=== PATIENT | female | born 1980 | race Two or more races ===

== ENCOUNTER 2025-02-05 19:02 | Emergency (ER) | payer OTHER ==
[~2025-02-05] VITALS: Ht 162.6 cm; Wt 66.1 kg
--- NOTE | 2025-02-05 19:35 | ED.PDOC ---
Back pain HPI HPI Comments 44 y.o female with PMHx of DJD, presents to the ED for chronic body pain that includes her hips, head and chest. Patient reports ongoing pain but for the past 2-3 days, pain has worsened. Patient lives in [place], is currently with family in the [facility] and will not go back for another week, but does states running out of her pain medication. Patient is on Gabapentin 300mg TID, Flexeril 5mg BID, and meloxicam 10mg. Patient denies any recent falls, injuries, nausea, vomiting, SOB, fever, chills or leg swelling. Time Seen by MD: 11:25 Reviewed Notes: Nurses Notes, Medications, Allergies Allergies: Coded Allergies: NO KNOWN ALLERGIES (Unverified , 02/05/25) Information Source: Patient Mode of Arrival: Ambulatory Timing: Came on: Gradually Duration: Since onset Severity: Moderate Quality: Aching, Sharp Onset: Other Circumstance: Other History of: Other Modifying Factors: Nothing Past Medical History PAST MEDICAL HISTORY: Denies Past Medical History (Other): DJD Surgical History: Denies all surgeries APPLIANCE SERVICER History: No Pertinent APPLIANCE SERVICER History Family History Family History: Reviewed,noncontributory to illness Social History Smoker: Non-Smoker Alcohol: Denies ETOH Use Drugs: Denies Drug Use Lives In: Home Constitutional: denies: chills, diaphoresis, fatigue, fever, malaise, sweats, weakness, others EENTM: denies: blurred vision, double vision, ear bleeding, ear discharge, ear drainage, ear pain, ear ringing, eye pain, eye redness, hearing loss, mouth pain, mouth swelling, nasal discharge, nose bleeding, nose congestion, nose pa in, photophobia, tearing, throat pain, throat swelling, voice changes, others Respiratory: denies: cough, hemoptysis, orthopnea, SOB at rest, shortness of breath, SOB with excertion, stridor, wheezing, others Cardiovascular: reports: chest pain; denies: dizzy spells, diaphoresis, Dyspnea on exertion, edema, irregular heart beat, left arm pain, lightheadedness, palpitations, PND, syncope, others Gastrointestinal: denies: abdomen distended, abdominal pain, blood streaked bowels, constipated, diarrhea, dysphagia, difficulty swallowing, hematemesis, m cathryn, nausea, poor appetite, poor fluid intake, rectal bleeding, rectal pain, vomiting, others Genitourinary: denies: abnormal vagina bleeding, burning, dyspareunia, dysuria, flank pain, frequency, hematuria, incontinence, pain, , vagina discharge, urgency, others Neurological: reports: headache; denies: dizziness, fainting, left sided numbness, left sided weakness, numbness, paresthesia, pre-existing deficit, right sided numbness, right sided weakness, seizure, speech problems, tingling, tremors, weakness, others Musculoskeletal: reports: muscle pain, others (hip pain ); denies: back pain, gout, joint pain, joint swelling, muscle stiffness, neck pain Integumetry: denies: bruises, change in color, change in hair/nails, dryness, laceration, lesions, lumps, rash, wounds, others Allergic/Immunocompromised: denies: Difficulty Healing, Frequent Infections, Hives, Itching, others Hematologic/Lymphatic: denies: anemia, blood clots, easy bleeding, easy bruising, swollen glands, others Endocrine: denies: excessive hunger, excessive sweating, excessive thirst, excessive urination, flushing, intolerance to cold, intolerance to heat, unexplained weight gain, unexplained weight loss, others Psychiatric: denies: anxiety, bipolar disorder, depression, hopeless, panic disorder, schizophrenia, sleepless, suicidal, others All Other Systems: Reviewed and Negative Physical Exam General Appearance: No Apparent Distress, Normal HEENT: Normal ENT Inspection, Pharynx Normal, TMs Normal Neck: Full Range of Motion, Non-Tender, Normal, Normal Inspection Respiratory: Chest Non-Tender, Lungs Clear, No Accessory Muscle Use, No Respiratory Distress, Normal Breath Sounds Cardiovascular: No Edema, No JVD, No Murmur, No Gallop, Normal Peripheral Pulses, Regular Rate/Rhythm Breast Exam: Deferred Gastrointestinal: No Organomegaly, Non Tender, No Pulsatile Mass, Normal Bowel Sounds, Soft Genitalia: Deferred Pelvic: Deferred Rectal: Deferred Extremities: No calf tenderness, Normal capillary refill, Normal inspection, Normal range of motion, Non-tender, No pedal edema Musculoskeletal : Apperance: Normal Neurologic: Alert, shot peening operator II-XII nml as Tested, No Motor Deficits, Normal Affect, Normal Mood, No Sensory Deficits Cerebellar Function: Normal Reflexes: Normal Skin: Dry, Normal Color, Warm Lymphatic: No Adenopathy Was a procedure done? Was a procedure done?: No Back Pain Differential Dx Differential Diagnosis: DJD, Musculoskeletal Pain, Pyelonephritis, Strain X-Ray, Labs, Meds, VS Vital Signs Date Time Temp Pulse Resp B/P (MAP) Pulse Ox O2 Delivery O2 Flow Rate FiO2 02/05/25 19:20 98.5 76 16 116/77 (90) 99 98.5 X-Ray, Labs, Meds, VS Comment Imaging: X-rays and CT scans were reviewed and interpreted by this provider, imaging shows no fractures and no pathological disease. Pending radiology review. Laboratory: Labs reviewed and interpreted by this provider. No significant abnormalities noted. Patient has prior medical visits reviewed. Med reconciliation performed Vital signs reviewed Time of 1ST Reevaluation: 19:31 Reevaluation 1ST: Unchanged Patient Education/Counseling: Diagnosis, Treatment, Prognosis, Need For Follow Up (Follow up with PCP next available appointment.) Family Education/Counseling: No Family Present SEPSIS Sepsis Screen Vital Signs Date Time Temp Pulse Resp B/P (MAP) Pulse Ox O2 Delivery O2 Flow Rate FiO2 02/05/25 19:20 98.5 76 16 116/77 (90) 99 98.5 Departure 1 Departure Time of Disposition: 20:09 Impression: Primary Impression: Medication refill Disposition: 01 HOME / SELF CARE / HOMELESS Condition: Fair e-Prescriptions Naproxen (NAPROSYN TABLET) 500 Mg Tb 1 TAB PO BID, #60 TAB 1 Refill Prov: DANNY HATHAWAYP 02/05/25 Cyclobenzaprine Hcl (Cyclobenzaprine Hcl) 10 Mg Tab 10 MG PO BID for 30 Days, #60 TAB Prov: DANNY HATHAWAY VACUUM SYSTEM TESTER 02/05/25 Methocarbamol (Methocarbamol) 500 Mg Tab 500 MG PO BID PRN, #40 TAB Prov: DANNY HATHAWAYP 02/05/25 Gabapentin (Once-Daily) (Gabapentin) 300 Mg Tab 300 MG PO TID for 30 Days, #90 TAB Prov: DANNY HATHAWAY VACUUM SYSTEM TESTER 02/05/25 Discharged With: Self Critical Care Note Critical Care Time?: No Stability Stability form required: No I personally scribed for DANNY HATHAWAYP ([email or web address]) on 02/05/25 at 19:35. Electronically submitted by Jeimy Vernon ([facility]). DANNY HATHAWAY [facility] Feb 05, 2025 19:35
[2025-02-05] MEDS ORDERED: NAP500T PO (20:12)
[2025-02-05] MEDS ORDERED: METH-1181 PO (20:12)
[2025-02-05] MEDS ORDERED: GABA300T4 PO (20:12)
[2025-02-05] MEDS ORDERED: CYCL-839 PO (20:12)
[2025-02-05] MEDS: methylPREDNISolone SOD SUCC 125 MG/2 ML VL IM ONE (20:15)
[2025-02-05] MEDS: KETOROLAC TROMETH 30 MG/ML 1ML VIAL IM ONE (20:15)
[2025-02-05 22:34] VITALS: BP 95/63; PULSE 54; RESP 17; TEMP 97.8; O2SAT 97
== END 2025-02-05 22:44 | disposition home or self-care (01) ==
LOC: ER 19:02
DX: G89.29 Other chronic pain (principal); M19.90 Unspecified osteoarthritis, unspecified site; Z76.0 Encounter for issue of repeat prescription
CPT/HCPCS: 96372; 99284; J1885; J2919

== ENCOUNTER 2025-06-21 19:58 | Emergency (ER) | payer OTHER, MEDICAID ==
[~2025-06-21] VITALS: Ht 170.2 cm; Wt 68.0 kg
[~2025-06-21 19:58] MED LIST: CYCL-839 PO; GABA300T4 PO; METH-1181 PO; NAP500T PO
--- NOTE | 2025-06-21 20:51 | DVH ---
CLINICAL HISTORY: syncope TECHNIQUE: Single view of the chest was obtained. COMPARISON: None FINDINGS: The heart size and pulmonary vasculature are normal. The lungs are clear. IMPRESSION: NO ACUTE CARDIOPULMONARY PROCESS.
[2025-06-21 20:56] LABS: Hematocrit 36.9 % (36.0-46.0); Hemoglobin 12.3 g/dL (12.2-16.2); Mean Corpuscular Hemoglobin 29.2 pg (28.0-32.0); Mean Corpuscular Volume 87.7 fL (80.0-100.0); Nucleated Red Blood Cells % 0.0 %
[2025-06-21 21:04] LABS: Chloride 105 mmol/L (98-107); Potassium 3.8 mmol/L (3.5-5.1); Sodium 142 mmol/L (136-145)
[2025-06-21 21:05] LABS: Anion Gap 11 (5-15); Calcium 9.4 mg/dL (8.7-10.4); Carbon Dioxide 26 mmol/L (20-31)
[2025-06-21 21:10] LABS: BUN/Creatinine Ratio 13.5 (10.0-20.0); Blood Urea Nitrogen 12 mg/dL (9-23); Glucose 89 mg/dL (74-106)
--- NOTE | 2025-06-21 22:53 | ED.PDOC ---
History of Present Illness HPI Comments 44-year-old female with past medical history of chronic neck pain, degenerative disc disease presenting for evaluation of fainting episode which occurred today, blunt head injury, neck pain. Patient states that she has chronic neck pain, stiffness for which she takes muscle relaxants, gabapentin regularly. She states that she was walking her dog when she started to feel lightheaded and felt as if she was going to pass out. She went back into her home and before she knew which states that she had passed out, fell down onto her butt, hit the back of her head. Did lose consciousness. No new neck pain aside from what she already has a baseline. Denies any preceding chest pain, shortness of breath. Denies any prior history of fainting episodes. Denies any focal weakness on 1 side of the body. Having pain along the back of the head where she struck it. Chief Complaint: Syncope Time Seen by MD: 20:08 Allergies: Coded Allergies: NO KNOWN ALLERGIES (Unverified , 02/05/25) Home Meds Active Scripts Naproxen (NAPROSYN TABLET) 500 Mg Tb, 1 TAB PO BID, #60 TAB 1 Refill Prov:DANNY GARCIA ADOBE ARCHITECT 02/05/25 Cyclobenzaprine Hcl (Cyclobenzaprine Hcl) 10 Mg Tab, 10 MG PO BID for 30 Days, #60 TAB Prov:DANNY GARCIA ADOBE ARCHITECT 02/05/25 Methocarbamol (Methocarbamol) 500 Mg Tab, 500 MG PO BID PRN, #40 TAB Prov:DANNY GARCIA ADOBE ARCHITECT 02/05/25 Gabapentin (Once-Daily) (Gabapentin) 300 Mg Tab, 300 MG PO TID for 30 Days, #90 TAB Prov:DANNY GARCIA ADOBE ARCHITECT 02/05/25 Mode of Arrival: Ambulatory Timing: Hours Past Medical History PAST MEDICAL HISTORY: Denies Surgical History: Denies all surgeries QUALITY CONTROL ASSESSOR History: No Pertinent QUALITY CONTROL ASSESSOR History Family History Family History: Reviewed,noncontributory to illness Social History Smoker: Non-Smoker Alcohol: Denies ETOH Use Drugs: Denies Drug Use Lives In: Home Constitutional: denies: chills, diaphoresis, fatigue, fever, malaise, sweats, weakness, others EENTM: denies: blurred vision, double vision, ear bleeding, ear discharge, ear drainage, ear pain, ear ringing, eye pain, eye redness, hearing loss, mouth pain, mouth swelling, nasal discharge, nose bleeding, nose congestion, nose pain, photophobia, tearing, throat pain, throat swelling, voice changes, others Respiratory: denies: cough, hemoptysis, orthopnea, SOB at rest, shortness of breath, SOB with excertion, stridor, wheezing, others Cardiovascular: reports: syncope; denies: chest pain, dizzy spells, diaphoresis, Dyspnea on exertion, edema, irregular heart beat, left arm pain, lightheadedness, palpitations, PND, others Gastrointestinal: denies: abdomen distended, abdominal pain, blood streaked bowels, constipated, diarrhea, dysphagia, difficulty swallowing, hematemesis, melena, nausea, poor appetite, poor fluid intake, rectal bleeding, rectal pain, vomiting, others Genitourinary: denies: abnormal vagina bleeding, burning, dyspareunia, dysuria, flank pain, frequency, hematuria, incontinence, pain, , vagina di scharge, urgency, others Neurological: reports: headache; denies: dizziness, fainting, left sided numbness, left sided weakness, numbness, paresthesia, pre-existing deficit, right sided numbness, right sided weakness, seizure, speech problems, tingling, tremors, weakness, others Musculoskeletal: denies: back pain, gout, joint pain, joint swelling, muscle pain, muscle stiffness, neck pain, others Integumetry: denies: bruises, change in color, change in hair/nails, dryness, laceration, lesions, lumps, rash, wounds, others Allergic/Immunocompromised: denies: Difficulty Healing, Frequent Infections, Hives, Itching, others Hematologic/Lymphatic: denies: anemia, blood clots, easy bleeding, easy bruising, swollen glands, others Endocrine: denies: excessive hunger, excessive sweating, excessive thirst, excessive urination, flushing, intolerance to cold, intolerance to heat, unexplained weight gain, unexplained weight loss, others Psychiatric: denies: anxiety, bipolar disorder, depression, hopeless, panic disorder, schizophrenia, sleepless, suicidal, others All Other Systems: Reviewed and Negative Physical Exam General Appearance: No Apparent Distress, Normal HEENT: Normal ENT Inspection, Pharynx Normal, TMs Normal, Other (+small left posterior occiput hematoma, no lacerations) Neck: Full Range of Motion, Non-Tender, Normal, Normal Inspection Respiratory: Chest Non-Tender, Lungs Clear, No Accessory Muscle Use, No Respiratory Distress, Normal Breath Sounds Cardiovascular: No Edema, No JVD, No Murmur, No Gallop, Normal Peripheral Pulses, Regular Rate/Rhythm Breast Exam: Deferred Gastrointestinal: No Organomegaly, Non Tender, No Pulsatile Mass, Normal Bowel Sounds, Soft Genitalia: Deferred Pelvic: Deferred Rectal: Deferred Extremities: No calf tenderness, Normal capillary refill, Normal inspection, Normal range of motion, Non-tender, No pedal edema Musculoskeletal : Extremity Location: Other (Bilateral paraspinal cervical muscle tenderness to palpation, no midline C-spine tenderness to palpation, no step-offs) Apperance: Normal Neurologic: Alert, associate II-XII nml as Tested, No Motor Deficits, Normal Affect, Normal Mood, No Sensory Deficits Cerebellar Function: Normal Reflexes: Normal Skin: Dry, Normal Color, Warm Lymphatic: No Adenopathy Was a procedure done? Was a procedure done?: No EKG EKG : Pulse Rate (adult): 68 [place]: Normal Cardiac Rhythm: NSR Block: None Hypertrophy: None ST: Normal Differential Dx Considerations may include: Vasovagal syncope vs pulmonary embolism vs ACS vs symptomatic anemia X-Ray, Labs, Meds, VS Vital Signs Date Time Temp Pulse Resp B/P (MAP) Pulse Ox O2 Delivery O2 Flow Rate FiO2 06/21/25 20:06 98.2 76 18 134/96 96 98.2 Lab Test 06/21/25 22:23 06/21/25 20:41 Range/Units Urine Test Negative Negative White Blood Count 4.7 4.4-10.8 10^3/uL Red Blood Count 4.20 4.0-5.20 10^6/uL Hemoglobin 12.3 12.2-16.2 g/dL Hematocrit 36.9 36.0-46.0 % Mean Corpuscular Volume 87.7 80.0-100.0 fL Mean Corpuscular Hemoglobin 29.2 28.0-32.0 pg Mean Corpuscular Hemoglobin Concent 33.3 32.0-36.0 g/dL Red Cell Distribution Width 13.7 11.8-14.3 % Platelet Count 344 140-450 10^3/uL Mean Platelet Volume 7.5 6.9-10.8 fL Neutrophils (%) (Auto) 44.7 37.0-80.0 % Lymphocytes (%) (Auto) 43.9 10.0-50.0 % Monocytes (%) (Auto) 7.7 0.0-12.0 % Eosinophils (%) (Auto) 2.1 0.0-7.0 % Basophils (%) (Auto) 1.6 0.0-2.0 % Neutrophils # (Auto) 2.1 1.6-8.6 10 ^3/uL Lymphocytes # (Auto) 2.1 0.4-5.4 10 ^3/uL Monocytes # (Auto) 0.4 0-1.3 10 ^3/uL Eosinophils # (Auto) 0.1 0-0.8 10 ^3/uL Basophils # (Auto) 0.1 0-0.2 10 ^3/uL Nucleated Red Blood Cells 0.0 % Sodium Level 142 136-145 mmol/L Potassium Level 3.8 3.5-5.1 mmol/L Chloride Level 105 98-107 mmol/L Carbon Dioxide Level 26 20-31 mmol/L Anion Gap 11 5-15 Blood Urea Nitrogen 12 9-23 mg/dL Creatinine 0.89 0.550-1.02 mg/dL Glomerular Filtration Rate Calc 82 >90 mL/min BUN/Creatinine Ratio 13.5 10.0-20.0 Serum Glucose 89 74-106 mg/dL Calcium Level 9.4 8.7-10.4 mg/dL Troponin I High Sensitivity < 3 L </=34 ng/L Time of 1ST Reevaluation: 00:20 Reevaluation 1ST: Improved Patient Education/Counseling: Diagnosis, Treatment Family Education/Counseling: No Family Present SEPSIS Sepsis Screen Date sepsis recognized/suspect: Jun 21, 2025 Time Sepsis recognized/suspect: 2009 Recent Procedure: No On Antibiotic Therapy: No Respiratory Rate >20: No Heart Rate >90: No Temp<36 C (96.8 F) or >38.3 C: No SBP <90 or MAP <65 mmHG: No New Acute Mental Status Change: No Is the patient on CPAP, BIPAP,: No Physician Orders Electrocardigram (06/21/25 20:10) Chest Xray 1 View (06/21/25 20:10) Head Without Contrast (06/21/25 22:39) Vital Signs Date Time Temp Pulse Resp B/P (MAP) Pulse Ox O2 Delivery O2 Flow Rate FiO2 06/21/25 20:06 98.2 76 18 134/96 96 98.2 Laboratory Tests Test 06/21/25 20:41 White Blood Count 4.7 10^3/uL (4.4-10.8) Departure 1 Departure Time of Disposition: 23:39 (44-year-old female with past medical history of chronic neck pain, degenerative disc disease presenting for evaluation of fainting episode which occurred today, blunt head injury, neck pain. Patient had preceding presyncopal symptoms, seems likely consistent with a vasovagal syncopal event. Had no chest pain, shortness of breath, does not take any oral contraceptive pills, has no risk factors for pulmonary embolism, does not seem consistent with PE. Not having any associated chest pain, cardiac markers within normal limits. EKG with no signs of acute ischemia or arrhythmia. Chest x-ray was performed which shows no evidence of acute cardiopulmonary process. CBC with no evidence of critical leukocytosis or significant anemia. Metabolic panel with no evidence of acute electrolyte abnormalities or acute kidney insuff iciency. Patient had a blunt head injury, now reporting some headache, CT of the head was performed which is negative for any acute intracranial process. Has no midline C-spine tenderness, has baseline neck pain, does not require CT imaging of the cervical spine as I do not suspect underlying fractures. Patient was given IM Toradol, oral Tylenol, topical lidocaine patch. Feeling improved after interventions. Stable for discharge given negative workup today.) Impression: Primary Impression: Syncope Additional Impressions: Blunt head trauma Headache Disposition: HOME / SELF CARE / HOMELESS Condition: Stable Additional Instructions: You were evaluated today after a fainting episode. Your labs were within normal limits. An EKG was within normal limits. A chest x-ray was within normal limits. A CT of the head was within normal limits. You may have had a vasovaga l syncopal event. Please follow up with your outpatient primary care doctor for further workup and re-evaluation of today's symptoms. Discharged With: Self Critical Care Note Critical Care Time?: No Stability Stability form required: JAGDISH Blackwood MD Jun 21, 2025 22:53
--- NOTE | 2025-06-21 23:12 | DVH ---
CLINICAL HISTORY: BHT/syncope TECHNIQUE: Helical scanning was performed of the head from the skull base to the vertex. Multiplanar reconstructions were performed. This exam was performed according to our departmental dose optimization program. Up-to-date CT equipment and radiation dose reduction techniques are utilized as appropriate. CTDI 57 DLP 1014 COMPARISON: None FINDINGS: There is no evidence for acute intracranial hemorrhage, acute ischemic changes, mass, mass effect, or extra-axial fluid collection. There is no hydrocephalus or midline shift. There is no effacement of the cerebral sulci and basal subarachnoid cisterns. The chavez-white matter differentiation is well maintained. The imaged paranasal sinuses are clear. IMPRESSION: NO ACUTE INTRACRANIAL ABNORMALITY SEEN.
[2025-06-22 00:18] VITALS: BP 114/41; RESP 17; TEMP 98.3; O2SAT 100
[2025-06-22] MEDS: LIDOCAINE 5% TOPICAL PATCH TOP ONE (00:20)
[2025-06-22 00:22] VITALS: PULSE 68
[2025-06-22] MEDS: ACETAMINOPHEN 500 MG TAB or CAP PO ONE (00:22)
[2025-06-22] MEDS: KETOROLAC TROMETH 60MG/2ML VIAL IM ONE (00:22)
--- NOTE | 2025-06-22 14:01 | ECG ---
[facility] Test Date: 2025-06-22 Test Time: 00:01:44 Pat Name: GINGER BRASHER Department: Room: Gender: F Visual Merchandising Specialist: : [id number] Requested By: JAGDISH HATHAWAY Order Number: [id number] Reading MD: Amandeep Irizarry Measurements Intervals [place] Rate: 68 P: 82 ND: 143 QRS: 45 QRSD: 99 T: 42 QT: 413 QTc: 440 Interpretive Statements Sinus rhythm Abnormal R-wave progression, early transition Electronically Signed On 06-22-2025 17:06:58 PST by Amandeep Irizarry Please click the below link to view image of tracing.
== END 2025-06-22 00:46 | disposition home or self-care (01) ==
LOC: ER 19:58
DX: S09.8XXA Other specified injuries of head, initial encounter (principal); R51.9 Headache, unspecified; R55 Syncope and collapse; Z79.899 Other long term (current) drug therapy; X58.XXXA Exposure to other specified factors, initial encounter; Y93.K1 Activity, walking an animal; Y92.89 Other specified places as the place of occurrence of the external cause; Y99.8 Other external cause status
CPT/HCPCS: 36415; 70450; 71045; 80048; 81025; 82947; 84484; 85025; 93005; 96372; 99285; J1885; 82962